=== PATIENT | female | born 1985 | race Caucasian/White ===

== ENCOUNTER 2018-06-17 19:41 | Inpatient (IN) ==
--- NOTE | 2018-06-17 20:21 | Emergency Department Note ---
Disposition Clinical Impression: Suicidal ideation Depression Qualifiers: Depression Type: major depressive disorder Major depression recurrence: recurrent Active/Remission status: currently active Major depression episode severity: moderate Qualified Code(s): F33.1 - Major depressive disorder, recurrent, moderate Disposition: Admitted As Inpatient Condition: Good Referrals: NONE,PCP [Primary Care Provider] - Forms: ED Satisfaction Letter Time of Disposition: 07:01 General Adult HPI - General Chief complaint: ED Psychiatric Symptoms Stated complaint: SI Time Seen by Provider: 06/17/18 19:50 Source: patient Mode of arrival: ambulatory Limitations: no limitations - History of Present Illness HPI Narrative: This is a 32-year-old female with a long history of major depressive disorder who comes to emergency department reporting increase in her suicidal ideas, thinking about another overdose attempt. She states that since the partial knee replacement of her right knee 10 weeks ago she has very poor sleep and has had a number of complications, all of which have aggravated her depression. Pain Scale: 7 - Related Data Home Medications Medication Instructions Recorded Confirmed Amitriptyline [Elavil] 50 mg PO HS 06/04/18 06/04/18 Buspirone HCl [Buspar] 20 mg PO BID 06/04/18 06/04/18 Butalbital/Aspirin/Caffeine 1 each PO BID PRN 06/04/18 06/04/18 [Fiorinal 50-325-40 mg Capsule] Celecoxib [Celebrex] 200 mg PO BID 06/04/18 06/04/18 Cetirizine HCl [Zyrtec] 10 mg PO DAILY 06/04/18 06/04/18 Cyclobenzaprine HCl 10 mg PO TID 06/04/18 06/04/18 Cyclobenzaprine [Flexeril] 10 mg PO TID 06/04/18 06/04/18 FLUoxetine HCl [Fluoxetine HCl] 80 mg PO DAILY 06/04/18 06/04/18 Fenofibrate,Micronized 43 mg PO DAILY 06/04/18 06/04/18 [Fenofibrate] Furosemide [Lasix] 20 mg PO DAILY 06/04/18 06/04/18 Gabapentin [Neurontin] 1,200 mg PO HS 06/04/18 06/04/18 HYDROcodone/Acet 10/325 mg [[place] 1 tab PO Q6HR PRN 06/04/18 06/04/18 10-325 mg] Magnesium Oxide [Mag-Oxide] 400 mg PO DAILY 06/04/18 06/04/18 Midodrine HCl 10 mg PO TID 06/04/18 06/04/18 Mirtazapine [Remeron] 45 mg PO HS 06/04/18 06/04/18 Nebivolol [Bystolic] 5 mg PO BID 06/04/18 06/04/18 Omeprazole [PriLOSEC] 40 mg PO DAILY 06/04/18 06/04/18 Potassium Chloride [Klor-Con 10] 10 meq PO DAILY 06/04/18 06/04/18 Prazosin HCl [Minipress] 10 mg PO HS 06/04/18 06/04/18 Promethazine [Phenergan] 25 mg PO Q8HR PRN 06/04/18 06/04/18 Sennosides/Docusate Sodium 1 each PO DAILY 06/04/18 06/04/18 [Docusate Sodium-Senna Tablet] Sucralfate [Carafate] 1 gm PO QIDAC 06/04/18 06/04/18 Topiramate [Topamax] 100 mg PO BID 06/04/18 06/04/18 diazePAM [Valium] 10 mg PO BID 06/04/18 06/04/18 Previous Rx's Medication Instructions Recorded Diclofenac Sodium [Voltaren] 50 mg PO Q8HR 5 Days tablet. 03/05/18 Montelukast [Singulair] 10 mg PO DAILY #30 tablet 04/21/18 Ondansetron ODT [Zofran ODT] 4 mg SL Q6HR PRN #12 tab.rapdis 04/24/18 Clindamycin [Cleocin] 150 mg PO Q6HR #7 capsule 06/04/18 HYDROcodone/Acet 5/325 mg [[place] 1 tab PO Q6H PRN 5 Days #20 tab 06/04/18 5-325 mg] Cyclobenzaprine [Flexeril] 10 mg PO BID #10 tablet 06/05/18 Ketorolac [Toradol] 10 mg PO Q6HR PRN #20 tablet 06/05/18 Oxycodone HCl/Acetaminophen 1 each PO 1-2XD PRN 1 Days #5 06/05/18 [Percocet 10-325 mg Tablet] tablet Allergies Allergy/AdvReac Type Severity Reaction Status Date / Time Bee Pollen Allergy Anaphylaxis Verified 06/03/18 10:02 benztropine [From Cogentin] Allergy Rash Verified 06/03/18 10:08 carbamazepine [From Tegretol] Allergy Rash Verified 06/03/18 10:05 ciprofloxacin [From Cipro] Allergy Rash Verified 06/03/18 10:08 duloxetine [From Cymbalta] Allergy Rash Verified 06/03/18 10:02 fluconazole [From Diflucan] Allergy Rash Verified 06/03/18 10:04 Fludrocortisone Allergy Hives Verified 06/03/18 10:08 [From Florinef] latex Allergy Rash - Verified 06/03/18 10:08 tested 06/03/18 levofloxacin [From Levaquin] Allergy Rash Verified 06/03/18 10:05 lurasidone [From Latuda] Allergy Hives Verified 04/27/18 23:02 Penicillins Allergy Rash Verified 06/03/18 10:02 quetiapine [From Seroquel] Allergy Seizure Verified 06/03/18 10:08 Temazepam [From Restoril] Allergy Rash Verified 06/03/18 10:08 ziprasidone [From Geodon] Allergy Hives Verified 06/03/18 10:04 ibuprofen [From Advil] AdvReac Vomiting Verified 04/27/18 23:02 methocarbamol [From Robaxin] AdvReac Vomiting Verified 04/27/18 23:02 naproxen [From Aleve] AdvReac Vomiting Verified 04/27/18 23:02 All systems ED: reviewed and negative except as stated. 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 - Social History Smoking Status: Never smoker Smokeless Tobacco Status: No Alcohol use: Reports: occasionally Drug use: Reports: none Physical Exam - General Limitations: no limitations General appearance: alert, in no apparent distress - Head Head exam: atraumatic, normocephalic, normal inspection - Eye Eye exam: Present: normal appearance, PERRL, EOMI - Chest Chest inspection: Present: normal inspection, symmetric chest wall rise - Respiratory Respiratory exam: Present: normal lung sounds bilaterally - Cardiovascular Cardiovascular exam: Present: regular rate, normal rhythm, normal heart sounds - Abdominal Exam Abdominal exam: Present: soft, Non-Tender. Absent: tenderness, distention, guarding, rebound, rigidity - Extremities Exam Extremities exam: Present: other (Extremity exam is unremarkable except for the right knee which has a dressing covering the incision from her surgery) - Neurological Exam Neurological exam: Present: alert, oriented X3 - Psychiatric Psychiatric exam: Present: depressed, suicidal ideation (She reports thoughts of taking an overdose of her medicines). Absent: homicidal ideation - Skin Skin exam: Present: warm, dry, intact, normal color Course Course Narrative: This is a 32-year-old female with suicidal ideation and depression. Vital Signs Temperature 99 F 06/17/18 19:47 Pulse Rate 112 06/17/18 19:47 Respiratory Rate 20 06/17/18 19:47 Blood Pressure 151/85 06/17/18 19:47 O2 Sat by Pulse Oximetry 96 06/17/18 19:47 Temperature 98.9 F 06/18/18 00:55 Pulse Rate 96 06/18/18 03:35 Respiratory Rate 18 06/18/18 03:35 Blood Pressure 123/83 06/18/18 03:35 O2 Sat by Pulse Oximetry 99 06/18/18 03:35 Oxygen Delivery Oxygen Delivery Room Air Medical Decision Making - MDM Narrative Medical decision making narrative: This is a 32-year-old female with history of depression and suicidal ideation. She was seen by psychiatry and accepted for admission, but transfer to an inpatient bed was delayed because of her history of MRSA skin infections, requiring a private room. - Lab Data Lab results reviewed: Yes I reviewed the patient's lab results. Lab results narrative: CBC was unremarkable BMP was unremarkable UA showed moderate bacteria with 5-15 white cells and 5-15 red cells HEG was negative Drug screen is positive for opiates, barbiturates, and benzodiazepines Salicylates were negative Tylenol was negative Alcohol was negative Result diagrams: 06/17/18 20:29 06/17/18 20:29 Lab Results 06/17/18 06/17/18 06/17/18 Range/Units 20:20 20:20 20:20 WBC (4.3-11.1) K/mcL RBC (3.82-4.97) M/mcL Hgb (11.5-15.4) g/dL Hct (35.3-44.9) % MCV (83.0-100.0) fL MCH (28.0-33.3) pg MCHC (31.6-35.5) g/dL RDW (11.5-14.5) % Plt Count (140-400) K/mcL MPV (9.4-12.4) fL Immature Gran % (0-4) % Seg Neutrophils % % Lymphocytes % % Monocytes % % Eosinophils % % Basophils % % Neutrophils # (1.6-8.9) K/mcL Lymphocytes # (0.6-4.6) K/mcL Monocytes # (0.0-1.3) K/mcL Eosinophils # (0.0-0.6) K/mcL Basophils # (0.0-0.2) K/mcL Sodium (136-145) mEq/L Potassium (3.5-5.1) mEq/L Chloride (98-107) mEq/L Carbon Dioxide (23-29) mEq/L BUN (6-20) mg/dL Creatinine (0.60-1.20) mg/dL Est GFR ( Amer) (> 60) Est GFR (Non-Af Amer) (> 60) BUN/Creatinine Ratio (6-26) Glucose (70-105) mg/dL Calculated Osmolality (280-300) Calcium (8.6-10.3) mg/dL Urine Color Yellow (Yellow) Urine Clarity Turbid A (Clear) Urine pH 7.5 (5.0-8.0) pH Units Ur Specific [place] 1.009 L (1.010-1.025) Urine Protein Negative (Neg-Trace) mg/dL Urine Glucose (UA) Normal (Normal) mg/dL Urine Ketones Negative (Negative) mg/dL Urine Blood Negative (Negative) Urine Nitrite Negative (Negative) Urine Bilirubin Negative (Negative) Urine Urobilinogen Normal (Normal) mg/dL Ur Leukocyte Esterase Negative (Negative) Urine Microscopic RBC 5-15 H (0-3) per hpf Urine Microscopic WBC 5-15 H (0-3) per hpf Ur Squamous Epith Cells Many H (None-Few) per lpf Urine Bacteria Moderate H (None-Few) per hpf Hyaline Casts None Seen (None-Few) per lpf Urine Test Negative (Negative) Salicylates (15.0-30.0) mg/dL Urine Opiates Screen Positive H (Loaqxf=833) ng/mL Acetaminophen (10-20) mcg/mL Ur Barbiturates Screen Positive H (Tvjjny=653) ng/mL Ur Phencyclidine Scrn Negative (Cutoff=25) ng/mL Ur Amphetamines Screen Negative (Hoonvb=0276) ng/mL U Benzodiazepines Scrn Positive H (Xusppm=828) ng/mL Urine Cocaine Screen Negative (Cutoff= 300) ng/mL U Marijuana (THC) Screen Negative (Cutoff = 50) ng/mL Ur Drug Screen Interp See Below Ethyl Alcohol (Less than 10) mg/dL 06/17/18 06/17/18 Range/Units 20:29 20:29 WBC 10.3 (4.3-11.1) K/mcL RBC 4.08 (3.82-4.97) M/mcL Hgb 12.5 (11.5-15.4) g/dL Hct 38.1 (35.3-44.9) % MCV 93.4 (83.0-100.0) fL MCH 30.6 (28.0-33.3) pg MCHC 32.8 (31.6-35.5) g/dL RDW 13.2 (11.5-14.5) % Plt Count 275 (140-400) K/mcL MPV 9.9 (9.4-12.4) fL Immature Gran % 0.7 (0-4) % Seg Neutrophils % 69.6 % Lymphocytes % 20.7 % Monocytes % 6.9 % Eosinophils % 1.5 % Basophils % 0.6 % Neutrophils # 7.2 (1.6-8.9) K/mcL Lymphocytes # 2.1 (0.6-4.6) K/mcL Monocytes # 0.7 (0.0-1.3) K/mcL Eosinophils # 0.2 (0.0-0.6) K/mcL Basophils # 0.1 (0.0-0.2) K/mcL Sodium 141 (136-145) mEq/L Potassium 4.0 (3.5-5.1) mEq/L Chloride 110 H (98-107) mEq/L Carbon Dioxide 23 (23-29) mEq/L BUN 16 (6-20) mg/dL Creatinine 0.77 (0.60-1.20) mg/dL Est GFR ( Amer) > 60 (> 60) Est GFR (Non-Af Amer) > 60 (> 60) BUN/Creatinine Ratio 21 (6-26) Glucose 111 H (70-105) mg/dL Calculated Osmolality 294 (280-300) Calcium 9.3 (8.6-10.3) mg/dL Urine Color (Yellow) Urine Clarity (Clear) Urine pH (5.0-8.0) pH Units Ur Specific [place] (1.010-1.025) Urine Protein (Neg-Trace) mg/dL Urine Glucose (UA) (Normal) mg/dL Urine Ketones (Negative) mg/dL Urine Blood (Negative) Urine Nitrite (Negative) Urine Bilirubin (Negative) Urine Urobilinogen (Normal) mg/dL Ur Leukocyte Esterase (Negative) Urine Microscopic RBC (0-3) per hpf Urine Microscopic WBC (0-3) per hpf Ur Squamous Epith Cells (None-Few) per lpf Urine Bacteria (None-Few) per hpf Hyaline Casts (None-Few) per lpf Urine Test (Negative) Salicylates < 2.5 L (15.0-30.0) mg/dL Urine Opiates Screen (Ilzmnj=711) ng/mL Acetaminophen < 10 L (10-20) mcg/mL Ur Barbiturates Screen (Deoogd=994) ng/mL Ur Phencyclidine Scrn (Cutoff=25) ng/mL Ur Amphetamines Screen (Dnkrpm=2748) ng/mL U Benzodiazepines Scrn (Hlabhh=364) ng/mL Urine Cocaine Screen (Cutoff= 300) ng/mL U Marijuana (THC) Screen (Cutoff = 50) ng/mL Ur Drug Screen Interp Ethyl Alcohol < 10 (Less than 10) mg/dL Critical Care Time Critical Care Time: No
[2018-06-17 20:36] LABS: Bilirubin,Urine Negative (Negative); Blood,Urine Negative (Negative); Clarity,Urine Turbid (Clear); Color,Urine Yellow (Yellow); Glucose,Urine (UA) Normal (Normal); Ketones,Urine Negative (Negative); Leukocyte Esterase,Urine Negative (Negative); Nitrite,Urine Negative (Negative); PH,Urine 7.5 pH Units (5.0-8.0); Protein,Urine Negative (Neg-Trace); Specific Gravity,Urine 1.009 (1.010-1.025); Urobilinogen,Urine Normal (Normal)
[2018-06-17 20:38] LABS: Bacteria,Urine Moderate per hpf (None-Few); Hyaline Casts,Urine None Seen per lpf (None-Few); Squamous Epithelial Cell,Urine Many per lpf (None-Few)
[2018-06-17 20:41] LABS: Basophils # 0.1 K/mcL (0.0-0.2); Basophils % 0.6 %; Eosinophils # 0.2 K/mcL (0.0-0.6); Eosinophils % 1.5 %; Hematocrit 38.1 % (35.3-44.9); Hemoglobin 12.5 g/dL (11.5-15.4); Immature Granulocytes % 0.7 % (0-4); Lymphocytes # 2.1 K/mcL (0.6-4.6); Lymphocytes % 20.7 %; Mean Corpuscular HGB Conc 32.8 g/dL (31.6-35.5); Mean Corpuscular Hemoglobin 30.6 pg (28.0-33.3); Mean Corpuscular Volume 93.4 fL (83.0-100.0); Mean Platelet Volume 9.9 fL (9.4-12.4); Monocytes # 0.7 K/mcL (0.0-1.3); Monocytes % 6.9 %; Neutrophils # 7.2 K/mcL (1.6-8.9); Platelet Count 275 K/mcL (140-400); Red Blood Count 4.08 M/mcL (3.82-4.97); Red Cell Distribution Width 13.2 % (11.5-14.5); Segmented Neutrophils % 69.6 %
[2018-06-17 20:47] LABS: Amphetamine Screen,Urine Negative ng/mL (Cutoff=1000); Barbiturate Screen,Urine Positive ng/mL (Cutoff=200); Benzodiazepines Screen,Urine Positive ng/mL (Cutoff=200); Cannabinoid Screen,Urine Negative ng/mL (Cutoff = 50); Cocaine Screen,Urine Negative ng/mL (Cutoff= 300); Opiate Screen,Urine Positive ng/mL (Cutoff=300); Phencyclidine Screen,Urine Negative ng/mL (Cutoff=25)
[2018-06-17 21:04] LABS: Acetaminophen < 10 mcg/mL (10-20); BUN/Creatinine Ratio 21 (6-26); Blood Urea Nitrogen 16 mg/dL (6-20); Calcium 9.3 mg/dL (8.6-10.3); Carbon Dioxide 23 mEq/L (23-29); Chloride 110 mEq/L (98-107); Ethanol < 10 mg/dL (Less than 10); Glucose 111 mg/dL (70-105); Osmolality,Calculated 294 (280-300); Salicylate < 2.5 mg/dL (15.0-30.0); Sodium 141 mEq/L (136-145); eGFR For Non-African Americans > 60 (> 60)
[2018-06-17] MEDS ORDERED: *HR* OxyCODONE/APAP 5/325 TABLET PO ONE (21:29)
[2018-06-18] MEDS ORDERED: *HR* HYDROcodone/Acet 5/325 mg TABLET PO ONE (02:46)
[2018-06-18] MEDS ORDERED: amLODIPine 5 MG TABLET PO ONE (03:19)
--- NOTE | 2018-06-18 08:21 | Emergency Department Note ---
Disposition Clinical Impression: Suicidal ideation Depression Qualifiers: Depression Type: major depressive disorder Major depression recurrence: recurrent Active/Remission status: currently active Major depression episode severity: moderate Qualified Code(s): F33.1 - Major depressive disorder, recurrent, moderate Disposition: Admitted As Inpatient Condition: Good Referrals: NONE,PCP [Primary Care Provider] - Forms: ED Satisfaction Letter General Adult HPI - General Chief complaint: ED Psychiatric Symptoms Stated complaint: SI Time Seen by Provider: 06/17/18 19:50 Source: patient Mode of arrival: ambulatory Limitations: no limitations - History of Present Illness Pain Scale: 7 - Related Data Home Medications Medication Instructions Recorded Confirmed Buspirone HCl [Buspar] 20 mg PO BID 06/04/18 06/18/18 Butalbital/Aspirin/Caffeine 1 each PO BID PRN 06/04/18 06/18/18 [Fiorinal 50-325-40 mg Capsule] Celecoxib [Celebrex] 200 mg PO DAILY 06/04/18 06/18/18 Cetirizine HCl [Zyrtec] 10 mg PO DAILY 06/04/18 06/18/18 FLUoxetine HCl [Fluoxetine HCl] 80 mg PO DAILY 06/04/18 06/18/18 Furosemide [Lasix] 20 mg PO DAILY 06/04/18 06/18/18 Gabapentin [Neurontin] 1,200 mg PO HS 06/04/18 06/18/18 Magnesium Oxide [Mag-Oxide] 400 mg PO DAILY 06/04/18 06/18/18 Midodrine HCl 10 mg PO TID 06/04/18 06/18/18 Mirtazapine [Remeron] 45 mg PO HS 06/04/18 06/18/18 Nebivolol [Bystolic] 5 mg PO BID 06/04/18 06/18/18 Omeprazole [PriLOSEC] 40 mg PO DAILY 06/04/18 06/18/18 Potassium Chloride [Klor-Con 10] 10 meq PO DAILY 06/04/18 06/18/18 Prazosin HCl [Minipress] 10 mg PO HS 06/04/18 06/18/18 Promethazine [Phenergan] 25 mg PO Q8HR PRN 06/04/18 06/18/18 Sennosides/Docusate Sodium 1 each PO DAILY 06/04/18 06/18/18 [Docusate Sodium-Senna Tablet] Sucralfate [Carafate] 1 gm PO QIDAC 06/04/18 06/18/18 Amitriptyline HCl 100 mg PO HS 06/18/18 06/18/18 Cyclobenzaprine HCl 5 mg PO TID PRN 06/18/18 06/18/18 Fenofibrate Nanocrystallized 48 mg PO DAILY 06/18/18 06/18/18 [[place]] HYDROcodone/Acet 5/325 mg [[place] 1 tab PO Q12H PRN 06/18/18 06/18/18 5-325 mg] Ondansetron [Zofran ODT] 8 mg SL BID PRN 06/18/18 06/18/18 Topiramate [Topamax] 50 mg PO BID 06/18/18 06/18/18 Previous Rx's Medication Instructions Recorded Diclofenac Sodium [Voltaren] 50 mg PO Q8HR 5 Days tablet. 03/05/18 Montelukast [Singulair] 10 mg PO DAILY #30 tablet 04/21/18 Allergies Allergy/AdvReac Type Severity Reaction Status Date / Time Bee Pollen Allergy Anaphylaxis Verified 06/03/18 10:02 benztropine [From Cogentin] Allergy Rash Verified 06/18/18 08:15 carbamazepine [From Tegretol] Allergy Rash Verified 06/18/18 08:15 ciprofloxacin [From Cipro] Allergy Rash Verified 06/18/18 08:15 duloxetine [From Cymbalta] Allergy Rash Verified 06/18/18 08:15 fluconazole [From Diflucan] Allergy Rash Verified 06/18/18 08:15 Fludrocortisone Allergy Hives Verified 06/18/18 08:15 [From Florinef] latex Allergy Rash - Verified 06/18/18 08:15 tested 06/03/18 levofloxacin [From Levaquin] Allergy Rash Verified 06/18/18 08:15 lurasidone [From Latuda] Allergy Hives Verified 06/18/18 08:15 Penicillins Allergy Rash Verified 06/18/18 08:15 quetiapine [From Seroquel] Allergy Seizure Verified 06/18/18 08:15 Temazepam [From Restoril] Allergy Rash Verified 06/18/18 08:15 ziprasidone [From Geodon] Allergy Hives Verified 06/18/18 08:15 ibuprofen [From Advil] AdvReac Vomiting Verified 06/18/18 08:15 methocarbamol [From Robaxin] AdvReac Vomiting Verified 06/18/18 08:15 naproxen [From Aleve] AdvReac Vomiting Verified 06/18/18 08:15 Psychiatric: Reports: depression, suicidal thoughts Past Medical History - Past Medical History Medical history: Reports: asthma, DVT, kidney stones, migraine, pulmonary embolus Psychiatric history: Reports: anxiety, depression, PTSD 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 - Social History Smoking Status: Never smoker Smokeless Tobacco Status: No Alcohol use: Reports: occasionally Drug use: Reports: none Physical Exam - General Limitations: no limitations General appearance: alert, in no apparent distress Course Vital Signs Temperature 99 F 06/17/18 19:47 Pulse Rate 112 06/17/18 19:47 Respiratory Rate 20 06/17/18 19:47 Blood Pressure 151/85 06/17/18 19:47 O2 Sat by Pulse Oximetry 96 06/17/18 19:47 Temperature 98.9 F 06/18/18 00:55 Pulse Rate 96 06/18/18 03:35 Respiratory Rate 18 06/18/18 03:35 Blood Pressure 123/83 06/18/18 03:35 O2 Sat by Pulse Oximetry 99 06/18/18 03:35 Oxygen Delivery Oxygen Delivery Room Air Medical Decision Making - Lab Data Result diagrams: 06/17/18 20:29 06/17/18 20:29 Lab Results 06/17/18 06/17/18 06/17/18 Range/Units 20:20 20:20 20:20 WBC (4.3-11.1) K/mcL RBC (3.82-4.97) M/mcL Hgb (11.5-15.4) g/dL Hct (35.3-44.9) % MCV (83.0-100.0) fL MCH (28.0-33.3) pg MCHC (31.6-35.5) g/dL RDW (11.5-14.5) % Plt Count (140-400) K/mcL MPV (9.4-12.4) fL Immature Gran % (0-4) % Seg Neutrophils % % Lymphocytes % % Monocytes % % Eosinophils % % Basophils % % Neutrophils # (1.6-8.9) K/mcL Lymphocytes # (0.6-4.6) K/mcL Monocytes # (0.0-1.3) K/mcL Eosinophils # (0.0-0.6) K/mcL Basophils # (0.0-0.2) K/mcL Sodium (136-145) mEq/L Potassium (3.5-5.1) mEq/L Chloride (98-107) mEq/L Carbon Dioxide (23-29) mEq/L BUN (6-20) mg/dL Creatinine (0.60-1.20) mg/dL Est GFR ( Amer) (> 60) Est GFR (Non-Af Amer) (> 60) BUN/Creatinine Ratio (6-26) Glucose (70-105) mg/dL Calculated Osmolality (280-300) Calcium (8.6-10.3) mg/dL Urine Color Yellow (Yellow) Urine Clarity Turbid A (Clear) Urine pH 7.5 (5.0-8.0) pH Units Ur Specific [place] 1.009 L (1.010-1.025) Urine Protein Negative (Neg-Trace) mg/dL Urine Glucose (UA) Normal (Normal) mg/dL Urine Ketones Negative (Negative) mg/dL Urine Blood Negative (Negative) Urine Nitrite Negative (Negative) Urine Bilirubin Negative (Negative) Urine Urobilinogen Normal (Normal) mg/dL Ur Leukocyte Esterase Negative (Negative) Urine Microscopic RBC 5-15 H (0-3) per hpf Urine Microscopic WBC 5-15 H (0-3) per hpf Ur Squamous Epith Cells Many H (None-Few) per lpf Urine Bacteria Moderate H (None-Few) per hpf Hyaline Casts None Seen (None-Few) per lpf Urine Test Negative (Negative) Salicylates (15.0-30.0) mg/dL Urine Opiates Screen Positive H (Vppnwr=425) ng/mL Acetaminophen (10-20) mcg/mL Ur Barbiturates Screen Positive H (Lzugwz=873) ng/mL Ur Phencyclidine Scrn Negative (Cutoff=25) ng/mL Ur Amphetamines Screen Negative (Klsopr=9628) ng/mL U Benzodiazepines Scrn Positive H (Rmbboj=814) ng/mL Urine Cocaine Screen Negative (Cutoff= 300) ng/mL U Marijuana (THC) Screen Negative (Cutoff = 50) ng/mL Ur Drug Screen Interp See Below Ethyl Alcohol (Less than 10) mg/dL 06/17/18 06/17/18 Range/Units 20:29 20:29 WBC 10.3 (4.3-11.1) K/mcL RBC 4.08 (3.82-4.97) M/mcL Hgb 12.5 (11.5-15.4) g/dL Hct 38.1 (35.3-44.9) % MCV 93.4 (83.0-100.0) fL MCH 30.6 (28.0-33.3) pg MCHC 32.8 (31.6-35.5) g/dL RDW 13.2 (11.5-14.5) % Plt Count 275 (140-400) K/mcL MPV 9.9 (9.4-12.4) fL Immature Gran % 0.7 (0-4) % Seg Neutrophils % 69.6 % Lymphocytes % 20.7 % Monocytes % 6.9 % Eosinophils % 1.5 % Basophils % 0.6 % Neutrophils # 7.2 (1.6-8.9) K/mcL Lymphocytes # 2.1 (0.6-4.6) K/mcL Monocytes # 0.7 (0.0-1.3) K/mcL Eosinophils # 0.2 (0.0-0.6) K/mcL Basophils # 0.1 (0.0-0.2) K/mcL Sodium 141 (136-145) mEq/L Potassium 4.0 (3.5-5.1) mEq/L Chloride 110 H (98-107) mEq/L Carbon Dioxide 23 (23-29) mEq/L BUN 16 (6-20) mg/dL Creatinine 0.77 (0.60-1.20) mg/dL Est GFR ( Amer) > 60 (> 60) Est GFR (Non-Af Amer) > 60 (> 60) BUN/Creatinine Ratio 21 (6-26) Glucose 111 H (70-105) mg/dL Calculated Osmolality 294 (280-300) Calcium 9.3 (8.6-10.3) mg/dL Urine Color (Yellow) Urine Clarity (Clear) Urine pH (5.0-8.0) pH Units Ur Specific [place] (1.010-1.025) Urine Protein (Neg-Trace) mg/dL Urine Glucose (UA) (Normal) mg/dL Urine Ketones (Negative) mg/dL Urine Blood (Negative) Urine Nitrite (Negative) Urine Bilirubin (Negative) Urine Urobilinogen (Normal) mg/dL Ur Leukocyte Esterase (Negative) Urine Microscopic RBC (0-3) per hpf Urine Microscopic WBC (0-3) per hpf Ur Squamous Epith Cells (None-Few) per lpf Urine Bacteria (None-Few) per hpf Hyaline Casts (None-Few) per lpf Urine Test (Negative) Salicylates < 2.5 L (15.0-30.0) mg/dL Urine Opiates Screen (Otznry=316) ng/mL Acetaminophen < 10 L (10-20) mcg/mL Ur Barbiturates Screen (Xmexoc=601) ng/mL Ur Phencyclidine Scrn (Cutoff=25) ng/mL Ur Amphetamines Screen (Akuqtz=7101) ng/mL U Benzodiazepines Scrn (Qrqkic=394) ng/mL Urine Cocaine Screen (Cutoff= 300) ng/mL U Marijuana (THC) Screen (Cutoff = 50) ng/mL Ur Drug Screen Interp Ethyl Alcohol < 10 (Less than 10) mg/dL Attestation Statement - Attestation Attestation: Care assumed from Dr. green at 7 AM pending presumed admission to the behavioral unit. I received notification from 1A at 08:15 that the psychiatrist recommended admission to the medicine service due to drainage from her right knee. The knee had not previously been examined by the psychiatry team. I did remove the brace and bandage. The wound approximation device still in place. There is no surrounding cellulitis or erythema. There is no purulent drainage. The patient does have some serous drainage. She otherwise appears sleepy but no acute distress. I have provided my findings to psychiatry and gave my impression that she could be admitted to the psychiatric unit with orthopedic consultation if necessary, however she does not meet clinical criteria for cellulitis or postop wound infection
[2018-06-18] MEDS ORDERED: *HR* HYDROcodone/Acet 10/325 mg TABLET PO ONE (12:47)
[2018-06-18] MEDS ORDERED: Acetaminophen/Butalbital/CaffeineTABLET PO PRN (16:32)
[2018-06-18] MEDS ORDERED: MOM Conc 10 ML UD.LIQ PO PRN (16:39)
[2018-06-18] MEDS ORDERED: *HR* LORazepam 1 MG TABLET PO PRN (16:39)
[2018-06-18] MEDS ORDERED: Mag Hydrox/Al Hydrox/Simeth 30 ML UDC PO PRN (16:39)
[2018-06-18] MEDS ORDERED: Haloperidol Lactate 5 MG/ML VIAL IM PRN (16:39)
[2018-06-18] MEDS ORDERED: *HR* LORazepam 2 MG/ML VIAL IM PRN (16:39)
[2018-06-18] MEDS: *HR* HYDROcodone/Acet 5/325 mg TABLET PO PRN (19:21)
[2018-06-18] MEDS ORDERED: PRAZOSIN HCL 10 MG PO SCH (21:00)
[2018-06-18] MEDS: Gabapentin 400 MG CAPSULE PO SCH (21:07)
[2018-06-18] MEDS: Topiramate 25 MG TABLET PO SCH (21:09)
[2018-06-18] MEDS: Mirtazapine 15 MG TABLET PO SCH (21:09)
[2018-06-18] MEDS: Ondansetron ODT 4 MG TAB.RAPDIS SL PRN (22:10)
[2018-06-18] MEDS: Acetaminophen 325 MG TABLET PO PRN (22:10)
[2018-06-19] MEDS: Sucralfate 1 GM TABLET PO SCH ×5 (03:12→20:58)
[2018-06-19] MEDS: Acetaminophen 325 MG TABLET PO PRN ×3 (04:10→21:53)
[2018-06-19] MEDS: Topiramate 25 MG TABLET PO SCH (10:01)
[2018-06-19] MEDS: FLUoxetine 20 MG CAPSULE PO SCH (10:02)
[2018-06-19] MEDS: Fenofibrate 54 MG TABLET PO SCH (10:02)
[2018-06-19] MEDS: Magnesium Oxide 400 MG TABLET PO SCH (10:02)
[2018-06-19] MEDS: Celecoxib 200 MG CAPSULE PO SCH (10:02)
[2018-06-19] MEDS: Loratadine 10 MG TABLET PO SCH (10:02)
[2018-06-19] MEDS: Sennosides/Docusate Sodium TABLET PO SCH (10:02)
[2018-06-19] MEDS: Furosemide 20 MG TABLET PO SCH (11:25)
--- NOTE | 2018-06-19 13:16 | Psychiatry History & Physical ---
Date of Encounter: 06/19/18 Time of Encounter: 13:10 History of Present Illness Medicare Admission Attestation: For traditional Medicare patients the provided hospital inpatient services are reasonable and necessary and in the case of services not specified as inpatient -only under 42 CFR 419.22 (n), that they are appropriately provided as inpatient services in accordance 42 CFR 412.3. For Critical Access Hospital the patient may reasonably be expected to be discharged or transferred to a hospital within 96 hours after admission to the Critical Access Hospital. Admitted From: Home Plans for Post Hospital Care: Home History of Present Illness: Ms. Rodriguez is a 32 year old female who was admitted secondary to SI. Recently had two knee surgeries and dealing with chronic pain. Not sleeping well. Thinks SI secondary to poor sleep. Already takes multiple psych meds. Hospitalized many times in past. No AOD issues. Discussed plan of action for this hospitalization. Client reports if she gets some decent sleep she thinks she will feel better. Failed or had side effects to Ambien, Melatonin, Trazodone, and Restoril. Already takes Remeron and Elavil. States Seroquel gave her seizures in the past but willing to try it again. Doesn't know what her previous dose was. Seizures may have been psychogenic as well. Already at a high dose of Neurontin. Will increase Topamax and start with a low dose of Seroquel so she should be protected from any epileptic activity. Knee looks good. Already weight bearing as tolerated. Past Med Surg Social Fam HX - Past Medical History Medical history: asthma, DVT, GERD, kidney stones, migraine, pulmonary embolus - Past Psychiatric History Psychiatric history: Reports: previous psychiatric hospitalization Family psychiatric history: Unknown Family History of Suicide: Unknown - Social History Smoking Status: Never smoker Smokeless Tobacco Status: No Alcohol use: occasionally Drug use: none Medications & Allergies Diclofenac Sodium [Voltaren] 50 mg PO Q8HR 5 Days tablet. 03/05/18 [Rx] Montelukast [Singulair] 10 mg PO DAILY #30 tablet 04/21/18 [Rx] Buspirone HCl [Buspar] 20 mg PO BID 06/04/18 [History] Butalbital/Aspirin/Caffeine [Fiorinal 50-325-40 mg Capsule] 1 each PO BID PRN [History] Celecoxib [Celebrex] 200 mg PO DAILY 06/04/18 [History] Cetirizine HCl [Zyrtec] 10 mg PO DAILY 06/04/18 [History] FLUoxetine HCl [Fluoxetine HCl] 80 mg PO DAILY 06/04/18 [History] Furosemide [Lasix] 20 mg PO DAILY 06/04/18 [History] Gabapentin [Neurontin] 1,200 mg PO HS 06/04/18 [History] Magnesium Oxide [Mag-Oxide] 400 mg PO DAILY 06/04/18 [History] Midodrine HCl 10 mg PO TID 06/04/18 [History] Mirtazapine [Remeron] 45 mg PO HS 06/04/18 [History] Nebivolol [Bystolic] 5 mg PO BID 06/04/18 [History] Omeprazole [PriLOSEC] 40 mg PO DAILY 06/04/18 [History] Potassium Chloride [Klor-Con 10] 10 meq PO DAILY 06/04/18 [History] Prazosin HCl [Minipress] 10 mg PO HS 06/04/18 [History] Promethazine [Phenergan] 25 mg PO Q8HR PRN 06/04/18 [History] Sennosides/Docusate Sodium [Docusate Sodium-Senna Tablet] 1 each PO DAILY [History] Sucralfate [Carafate] 1 gm PO QIDAC 06/04/18 [History] Amitriptyline HCl 100 mg PO HS 06/18/18 [History] Cyclobenzaprine HCl 5 mg PO TID PRN 06/18/18 [History] Fenofibrate Nanocrystallized [Tricor] 48 mg PO DAILY 06/18/18 [History] HYDROcodone/Acet 5/325 mg [[place] 5-325 mg] 1 tab PO Q12H PRN 06/18/18 [History] Ondansetron [Zofran ODT] 8 mg SL BID PRN 06/18/18 [History] Topiramate [Topamax] 50 mg PO BID 06/18/18 [History] 3 Allergy/AdvReac Type Severity Reaction Status Date / Time Bee Pollen Allergy Anaphylaxis Verified 06/03/18 10:02 benztropine [From Cogentin] Allergy Rash Verified 06/18/18 08:15 carbamazepine [From Tegretol] Allergy Rash Verified 06/18/18 08:15 ciprofloxacin [From Cipro] Allergy Rash Verified 06/18/18 08:15 duloxetine [From Cymbalta] Allergy Rash Verified 06/18/18 08:15 fluconazole [From Diflucan] Allergy Rash Verified 06/18/18 08:15 Fludrocortisone Allergy Hives Verified 06/18/18 08:15 [From Florinef] latex Allergy Rash - Verified 06/18/18 08:15 tested 06/03/18 levofloxacin [From Levaquin] Allergy Rash Verified 06/18/18 08:15 lurasidone [From Latuda] Allergy Hives Verified 06/18/18 08:15 Penicillins Allergy Rash Verified 06/18/18 08:15 quetiapine [From Seroquel] Allergy Seizure Verified 06/18/18 08:15 Temazepam [From Restoril] Allergy Rash Verified 06/18/18 08:15 ziprasidone [From Geodon] Allergy Hives Verified 06/18/18 08:15 ibuprofen [From Advil] AdvReac Vomiting Verified 06/18/18 08:15 methocarbamol [From Robaxin] AdvReac Vomiting Verified 06/18/18 08:15 naproxen [From Aleve] AdvReac Vomiting Verified 06/18/18 08:15 Review of Systems Constitutional: Reports: other Eyes: Denies: eye pain, vision change Ears, Nose, Throat: Denies: ear pain, throat pain, dental pain, hearing loss, congestion Cardiovascular: Denies: chest pain, palpitations, dyspnea on exertion Respiratory: Denies: cough, dyspnea, wheezes Gastrointestinal: Denies: abdominal pain, nausea, vomiting, diarrhea, constipation Genitourinary female: Denies: urgency, dysuria, frequency, abnormal menses, dyspareunia Musculoskeletal: Reports: joint pain Integumentary: Denies: rash, lesions, pruritus Neurological: Denies: headache, weakness, numbness, memory loss Endocrine: Denies: fatigue, heat or cold intolerance Hematologic/Lymphatic: Denies: easy bruising, lymphadenopathy Allergic/Immunologic: Denies: urticaria, itchy eyes Exam - HEENT Head exam IM: Present: atraumatic Eye exam IM: Present: EOMI ENT exam IM: Present: mucous membranes dry - Neurological Neurological exam: Present: CN II-XII intact - Respiratory Respiratory exam IM: Present: CTAB - GI/Abdominal GI/Abdominal exam IM: Present: normal bowel sounds - Extremities Extremities exam IM: Present: tenderness - Skin Skin exam IM: Present: normal color - Constitutional Vitals: Temp Pulse Resp BP Pulse Ox 98.0 F 71 18 116/72 98 06/19/18 09:00 06/19/18 09:00 06/19/18 09:00 06/19/18 09:00 06/18/18 10:35 General appearance: age & developmentally appropriate, well-groomed, well- nourished - Musculoskeletal Gait: other Station: relaxed Strength & Tone: normal for patient - Psychiatric Patient Orientation: Yes Person, Yes Time, Yes Place Level of alertness: Alert Behavior: calm, cooperative Psychomotor activity: Normal Eye Contact: Maintains Eye Contact Mood Description: Depressed Affect description: congruent with mood Speech Volume: Normal Speech pattern: normal rate, normal rhythm, normal tone, fluent, spontaneous Language & Vocabulary: consistent with education Thought Process: Linear, Goal Oriented Thought Content: Yes Suicidal ideation, No Homicidal ideation, No Overt delusions Perceptual Disturbances: No Auditory hallucinations, No Visual hallucinations Attention Span Ability: Capable of Focused Attention Memory Description: Grossly Intact Patient Reliability: Reliable Historian Fund of knowledge: Yes abstraction ability, Yes average, Yes aware of current events Intelligence Estimate: Average Judgment: Fair Insight: Partial Results - Labs Labs: Laboratory Last Values WBC 10.3 K/mcL (4.3-11.1) 06/17/18 20:29 RBC 4.08 M/mcL (3.82-4.97) 06/17/18 20:29 Hgb 12.5 g/dL (11.5-15.4) 06/17/18 20:29 Hct 38.1 % (35.3-44.9) 06/17/18 20:29 MCV 93.4 fL (83.0-100.0) 06/17/18 20:29 MCH 30.6 pg (28.0-33.3) 06/17/18 20:29 MCHC 32.8 g/dL (31.6-35.5) 06/17/18 20:29 RDW 13.2 % (11.5-14.5) 06/17/18 20:29 Plt Count 275 K/mcL (140-400) 06/17/18 20:29 MPV 9.9 fL (9.4-12.4) 06/17/18 20: Immature Gran % 0.7 % (0-4) 06/17/18: Seg Neutrophils % 69.6 % 06/17/18 20: Lymphocytes % 20.7 % 06/17/18 20: Monocytes % 6.9 % 06/17/18: Eosinophils % 1.5 % 06/17/18: Basophils % 0.6 % 06/17/18: Neutrophils # 7.2 K/mcL (1.6-8.9) 06/17/18 20: Lymphocytes # 2.1 K/mcL (0.6-4.6) 06/17/18: Monocytes # 0.7 K/mcL (0.0-1.3) 06/17/18: Eosinophils # 0.2 K/mcL (0.0-0.6) 06/17/18: Basophils # 0.1 K/mcL (0.0-0.2) 06/17/18 20: Sodium 141 mEq/L (136-145) 06/17/18 20: Potassium 4.0 mEq/L (3.5-5.1) 06/17/18: Chloride 110 mEq/L (98-107) H 06/17/18: Carbon Dioxide 23 mEq/L (23-29) 06/17/18: BUN 16 mg/dL (6-20) 06/17/18: Creatinine 0.77 mg/dL (0.60-1.20) 06/17/18 20: Est GFR ( Amer) > 60 (> 60) 06/17/18 20: Est GFR (Non-Af Amer) > 60 (> 60) 06/17/18 20: BUN/Creatinine Ratio 21 (6-26) 06/17/18: Glucose 111 mg/dL (70-105) H 06/17/18: Calculated Osmolality 294 (280-300) 06/17/18: Calcium 9.3 mg/dL (8.6-10.3) 06/17/18 20: Urine Color Yellow (Yellow) 06/17/18 20: Urine Clarity Turbid (Clear) A 06/17/18 20:20 Urine pH 7.5 pH Units (5.0-8.0) 06/17/18 20:20 Ur Specific [place] 1.009 (1.010-1.025) L 06/17/18 20:20 Urine Protein Negative mg/dL (Neg-Trace) 06/17/18 20:20 Urine Glucose (UA) Normal mg/dL (Normal) 06/17/18 20:20 Urine Ketones Negative mg/dL (Negative) 06/17/18 20:20 Urine Blood Negative (Negative) 06/17/18 20:20 Urine Nitrite Negative (Negative) 06/17/18 20:20 Urine Bilirubin Negative (Negative) 06/17/18 20:20 Urine Urobilinogen Normal mg/dL (Normal) 06/17/18 20:20 Ur Leukocyte Esterase Negative (Negative) 06/17/18 20:20 Urine Microscopic RBC 5-15 per hpf (0-3) H 06/17/18 20:20 Urine Microscopic WBC 5-15 per hpf (0-3) H 06/17/18 20:20 Ur Squamous Epith Cells Many per lpf (None-Few) H 06/17/18 20:20 Urine Bacteria Moderate per hpf (None-Few) H 06/17/18 20:20 Hyaline Casts None Seen per lpf (None-Few) 06/17/18 20:20 Urine Test Negative (Negative) 06/17/18 20:20 Salicylates < 2.5 mg/dL (15.0-30.0) L 06/17/18 20:29 Urine Opiates Screen Positive ng/mL (Cqarho=999) H 06/17/18 20:20 Acetaminophen < 10 mcg/mL (10-20) L 06/17/18 20:29 Ur Barbiturates Screen Positive ng/mL (Hzyqpu=661) H 06/17/18 20:20 Ur Phencyclidine Scrn Negative ng/mL (Cutoff=25) 06/17/18 20:20 Ur Amphetamines Screen Negative ng/mL (Okbnry=0009) 06/17/18 20:20 U Benzodiazepines Scrn Positive ng/mL (Fhixxg=781) H 06/17/18 20:20 Urine Cocaine Screen Negative ng/mL (Cutoff= 300) 06/17/18 20:20 U Marijuana (THC) Screen Negative ng/mL (Cutoff = 50) 06/17/18 20:20 Ur Drug Screen Interp See Below 06/17/18 20:20 Ethyl Alcohol < 10 mg/dL (Less than 10) 06/17/18 20:29 Assessment and Plan (1) Major depress dis, severe Current visit: Yes Status: Acute Plan: Admit inpatient for safety and stabilization, Close observation, Suicide Precautions per unit protocol, Encourage participation in unit milieu, Group Therapy, Monitor sleep, Monitor appetite Risks, benefits, side effects, alternatives discussed w/pt: Yes Patient agreeable to treatment: Yes Plans for Post Hospital Care: Home Estimated Length of Stay (Days): 3
[2018-06-19] MEDS: *HR* HYDROcodone/Acet 5/325 mg TABLET PO PRN (19:52)
[2018-06-19] MEDS: Gabapentin 400 MG CAPSULE PO SCH (20:57)
[2018-06-19] MEDS: Mirtazapine 15 MG TABLET PO SCH (20:57)
[2018-06-19] MEDS: Topiramate 100 MG TABLET PO SCH (20:58)
[2018-06-20] MEDS: Topiramate 100 MG TABLET PO SCH (09:32)
[2018-06-20] MEDS: Fenofibrate 54 MG TABLET PO SCH (09:32)
[2018-06-20] MEDS: Furosemide 20 MG TABLET PO SCH (09:32)
[2018-06-20] MEDS: Sennosides/Docusate Sodium TABLET PO SCH (09:32)
[2018-06-20] MEDS: Magnesium Oxide 400 MG TABLET PO SCH (09:32)
[2018-06-20] MEDS: Loratadine 10 MG TABLET PO SCH (09:32)
[2018-06-20] MEDS: Celecoxib 200 MG CAPSULE PO SCH (09:32)
[2018-06-20] MEDS: FLUoxetine 20 MG CAPSULE PO SCH (09:32)
[2018-06-20] MEDS: Sucralfate 1 GM TABLET PO SCH ×4 (09:39→20:50)
--- NOTE | 2018-06-20 10:10 | Psychiatry Progress Note ---
Date of Encounter: 06/20/18 Time of Encounter: 10:07 Subjective Interval history: Continues to endorse SI but does not appear outwardly depressed. Continues to endorse knee pain but she also messes with her knee constantly. Tends to pull off the steri strips and then wants new ones. Asking for a wedge pillow and ice today. Pleasant but demanding at the same time. Manipulative and staff splitting. Very Cluster B presentation. Seems to like being in the hospital. Suspect she can be discharged early this week. Review of Systems Constitutional: Denies: fever, chills, weakness, weight change Eyes: Denies: eye pain, vision change Ears, Nose, Throat: Denies: ear pain, throat pain, dental pain, hearing loss, congestion Cardiovascular: Denies: chest pain, palpitations, dyspnea on exertion Respiratory: Denies: cough, dyspnea, wheezes Gastrointestinal: Denies: abdominal pain, nausea, vomiting, diarrhea, constipation Musculoskeletal: Reports: joint pain Neurological: Denies: headache, weakness, numbness, memory loss Results - Vital Signs Vital Signs: Temp Pulse Resp BP Pulse Ox 99.5 F 98 12 115/76 98 06/19/18 20:30 06/19/18 20:30 06/19/18 20:30 06/19/18 20:30 06/18/18 10:35 Assessment and Plan (1) Major depress dis, severe Current visit: Yes Status: Acute Plan: Continue hospitalization, Close observation, Suicide Precautions per unit protocol, Encourage participation in unit milieu, Group Therapy, Monitor sleep, Monitor appetite Risks, benefits, side effects, alternatives discussed w/pt: Yes Patient agreeable to treatment: Yes Consult Discharge Plan - Plan Referrals: NONE,PCP [Primary Care Provider] - Psychiatry Exam - Constitutional Vitals: Temp Pulse Resp BP Pulse Ox 99.5 F 98 12 115/76 98 06/19/18 20:30 06/19/18 20:30 06/19/18 20:30 06/19/18 20:30 06/18/18 10:35 General appearance: obese - Musculoskeletal Gait: other Station: relaxed Strength & Tone: normal for patient - Psychiatric Patient Orientation: Yes Person, Yes Time, Yes Place Level of alertness: Alert Behavior: calm, cooperative Psychomotor activity: Normal Eye Contact: Maintains Eye Contact Mood Description: Depressed Affect description: full range Speech Volume: Normal Speech pattern: normal rate, normal rhythm, normal tone, fluent, spontaneous Language & Vocabulary: consistent with education Thought Process: Linear Thought Content: Yes Suicidal ideation, No Homicidal ideation, No Overt delusions Perceptual Disturbances: No Auditory hallucinations, No Visual hallucinations Attention Span Ability: Capable of Focused Attention Memory Description: Grossly Intact Patient Reliability: Reliable Historian Fund of knowledge: Yes abstraction ability, Yes aware of current events Intelligence Estimate: Average Judgment: Limited Insight: Partial
[2018-06-20] MEDS: Acetaminophen 325 MG TABLET PO PRN ×2 (10:21→16:59)
[2018-06-20] MEDS: Mirtazapine 15 MG TABLET PO SCH (20:43)
[2018-06-20] MEDS: Gabapentin 400 MG CAPSULE PO SCH (20:44)
[2018-06-20] MEDS: Topiramate 25 MG TABLET PO SCH (20:45)
[2018-06-20] MEDS: *HR* HYDROcodone/Acet 5/325 mg TABLET PO PRN (20:47)
[2018-06-21] MEDS: Acetaminophen 325 MG TABLET PO PRN ×2 (06:41→18:54)
[2018-06-21] MEDS: Sucralfate 1 GM TABLET PO SCH ×4 (06:41→20:49)
[2018-06-21] MEDS: FLUoxetine 20 MG CAPSULE PO SCH (09:10)
[2018-06-21] MEDS: Magnesium Oxide 400 MG TABLET PO SCH (09:11)
[2018-06-21] MEDS: Topiramate 25 MG TABLET PO SCH ×2 (09:11→20:50)
[2018-06-21] MEDS: Sennosides/Docusate Sodium TABLET PO SCH (09:11)
[2018-06-21] MEDS: Loratadine 10 MG TABLET PO SCH (09:11)
[2018-06-21] MEDS: Fenofibrate 54 MG TABLET PO SCH (09:11)
[2018-06-21] MEDS: Furosemide 20 MG TABLET PO SCH (09:11)
[2018-06-21] MEDS: Celecoxib 200 MG CAPSULE PO SCH (09:11)
--- NOTE | 2018-06-21 15:07 | Psychiatry Progress Note ---
Date of Encounter: 06/21/18 Time of Encounter: 15:00 Subjective Interval history: Patient is a 32-year-old white female. Chief complaint I need to get some sleep. Last night at 2:00 in the morning was just staring at the ceiling. Known told me I had MRSA in my nose. I am here for how I am doing emotionally History of present illness. The patient has been admitted for major depressive disorder. She reports having suicidal ideation at this point but does not have a plan. The patient has a complicated medical history and he can be summarized that the patient was given surgery with partial replacement. She has hardware in the right knee. She also has a diagnosis of orthostatic hypotension she took a fall and developed patellar hematoma or patellar misalignment required more surgery. The patient has surgical wound and has either played with it or has moved it and then requested additional treatment for. The patient is on a regimen of antidepressant medicine she says that 80 mg of Prozac helps her. She has multiple allergic reactions listed in the computer. The patient has a special notification because MRSA was cultured out of her and interacts. The patient was told that she would need special wound care. As noted previously the patient has not been distressed about her mood but says that she is intermittently suicidal. When asked about going home she said that she would prefer to stay here to get her sleep taken care of and if discharged she would hate to have to come back to get her sleep medicines adjusted. The patient has an appointment on June 23. 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 the patient has had some moves and has returned from [place] Review of Systems Psychiatric: Reports: depression, abnormal sleep pattern, suicidal ideation Results - Vital Signs Vital Signs: Temp Pulse Resp BP Pulse Ox 97.9 F 92 20 113/72 98 06/21/18 09:00 06/21/18 09:00 06/21/18 09:00 06/21/18 09:00 06/18/18 10:35 Assessment and Plan (1) Major depress dis, severe Current visit: Yes Status: Acute Plan: Continue hospitalization, Close observation, Suicide Precautions per unit protocol, Encourage participation in unit milieu, Group Therapy, Monitor sleep, Monitor appetite, Secure weapons Risks, benefits, side effects, alternatives discussed w/pt: Yes Patient agreeable to treatment: Yes (2) Suicidal ideation Current visit: Yes Status: Acute Plan: Continue hospitalization, Suicide Precautions per unit protocol, Secure weapons Consult Discharge Plan - Plan Referrals: [facility] [Outside] - 06/23/18 10:00 am (The above appointment is with Christoph Pompa for outpatient psychiatric assessment and medication management services. Please arrive 10 minutes early to complete the check-in process. Please bring your insurance card (or HCAP award letter) and photo ID. If you are unable to keep this appointment, 24 hour business notice of cancellation is expected. If you miss your new patient appointment with any provider without providing appropriate notice, you cannot be re-scheduled for that service. The above appointment(s) reflects first availability. You may contact the office regularly to check for cancellations that may allow you to be seen sooner. The [facility] is the 1st building behind [facility] in [place], [place]. Please do not use GPS or mapping apps to locate the office, as they will take you to the wrong location. ) Psychiatry Exam - Constitutional Vitals: Temp Pulse Resp BP Pulse Ox 97.9 F 92 20 113/72 98 06/21/18 09:00 06/21/18 09:00 06/21/18 09:00 06/21/18 09:00 06/18/18 10:35 General appearance: age & developmentally appropriate, well-groomed, well- nourished, obese - Musculoskeletal Gait: slow Station: relaxed Strength & Tone: normal for patient - Psychiatric Patient Orientation: Yes Person, Yes Time, Yes Place Level of alertness: Alert Behavior: calm, cooperative Psychomotor activity: Normal Eye Contact: Maintains Eye Contact Mood Description: Euthymic/stable Affect description: congruent with mood, full range, incongruent with mood Speech Volume: Normal Speech pattern: normal rate, normal rhythm, normal tone, fluent, spontaneous Language & Vocabulary: consistent with education Thought Process: Linear, Goal Oriented Thought Content: Yes Suicidal ideation, No Homicidal ideation, No Overt delusions Perceptual Disturbances: No Auditory hallucinations, No Visual hallucinations Attention Span Ability: Capable of Focused Attention Memory Description: Grossly Intact Patient Reliability: Reliable Historian Fund of knowledge: Yes abstraction ability, Yes aware of current events Intelligence Estimate: Average Judgment: Fair Insight: Partial
[2018-06-21] MEDS: Gabapentin 400 MG CAPSULE PO SCH (20:49)
[2018-06-21] MEDS: Mirtazapine 15 MG TABLET PO SCH (20:49)
[2018-06-21] MEDS: *HR* HYDROcodone/Acet 5/325 mg TABLET PO PRN (20:49)
[2018-06-22] MEDS: Ondansetron ODT 4 MG TAB.RAPDIS SL PRN ×2 (06:51→20:24)
[2018-06-22] MEDS: Acetaminophen 325 MG TABLET PO PRN ×3 (06:52→21:58)
[2018-06-22] MEDS: Sucralfate 1 GM TABLET PO SCH ×4 (06:52→21:59)
[2018-06-22] MEDS: FLUoxetine 20 MG CAPSULE PO SCH (09:49)
[2018-06-22] MEDS: Topiramate 25 MG TABLET PO SCH ×2 (09:50→20:39)
[2018-06-22] MEDS: Celecoxib 200 MG CAPSULE PO SCH (09:50)
[2018-06-22] MEDS: Fenofibrate 54 MG TABLET PO SCH (09:50)
[2018-06-22] MEDS: Magnesium Oxide 400 MG TABLET PO SCH (09:51)
[2018-06-22] MEDS: Sennosides/Docusate Sodium TABLET PO SCH (09:51)
[2018-06-22] MEDS: Furosemide 20 MG TABLET PO SCH (09:51)
[2018-06-22] MEDS: Loratadine 10 MG TABLET PO SCH (09:52)
--- NOTE | 2018-06-22 11:29 | Psychiatry Progress Note ---
Date of Encounter: 06/22/18 Time of Encounter: 11:30 Subjective Interval history: ID the patient is a 32-year-old white female. Chief complaint I did not fall sleep until 2:00 in the morning. History of present illness: This patient has stated that she still has suicidal ideation related to her sleep. She was increased to a dose of 150 mg of Seroquel last night but she still requested from the nurse for more medicine to help her sleep. In spite of multiple medicines patient has not been able to sleep today she tells me that she slept from 2 AM until 6:40 AM. She woke at 640 but missed breakfast and was dozing in between according to her report. The patient does spend time in bed she has pain in the knee. She is not able to tell me when her next appointment with the orthopedic surgeon is although she believes today. We have no way to verify this at this time. The patient has an appointment tomorrow with [facility] and reports that her roommate will not be able to provide her with a ride. She was later informed the ride could be arranged for her. And the patient was willing to consider signing on is a voluntary patient. The patient notes no particular side effects the medicines and specifically no seizures seizure-like activity. Review of Systems Psychiatric: Reports: depression, abnormal sleep pattern, suicidal ideation Results - Vital Signs Vital Signs: Temp Pulse Resp BP Pulse Ox 97.8 F 75 16 113/74 98 06/22/18 09:00 06/22/18 09:00 06/22/18 09:00 06/22/18 09:00 06/18/18 10:35 Assessment and Plan (1) Major depress dis, severe Current visit: Yes Status: Acute Plan: Continue hospitalization, Close observation, Suicide Precautions per unit protocol, Encourage participation in unit milieu, Group Therapy, Monitor sleep Risks, benefits, side effects, alternatives discussed w/pt: Yes Patient agreeable to treatment: Yes (2) Suicidal ideation Current visit: Yes Status: Acute Plan: Continue hospitalization, Close observation, Suicide Precautions per unit protocol, Encourage participation in unit milieu, Secure weapons Risks, benefits, side effects, alternatives discussed w/pt: Yes Patient agreeable to treatment: Yes Consult Discharge Plan - Plan Referrals: [facility] [Outside] - 06/23/18 10:00 am (The above appointment is with Christoph Pompa for outpatient psychiatric assessment and medication management services. Please arrive 10 minutes early to complete the check-in process. Please bring your insurance card and photo ID. If you are unable to keep this appointment, 24 hour business notice of cancellation is expected. If you miss your new patient appointment without providing appropriate notice, you cannot be re-scheduled for that service. [facility] Transportation Services will pick you up for this appointment and take you home. Be ready for pick-up at 9:00am, and the driver education road instructor will arrive between 9:00am - 9:30am.) [facility] [Outside] - 07/09/18 1:30 pm (The above appointment is with Esther Morrow, counselor at [facility]. Your first appointment will be very thorough. You will be completing paperwork, meeting with a counselor and developing a treatment plan. You will receive follow- up appointments for on-going services, which could include community support, mental health and substance abuse counseling, groups/partial hospitalization programming, medication assisted treatment, and psychiatric medication management. Please bring the following with you to your first visit to the clinic: 1) proof of household income (two consecutive pay stubs, social security award letter, bank statement, statement letter from [facility] , child support statement, IRS 1040 or W2 form, or a statement from the person who financially supports you stating they help provide for your basic needs), 2 ) proof of residency (drivers license, a piece of mail showing your address, a statement from person you live with verifying you live at their address), 3) your social security number, 4) photo ID, and 5) your insurance card (if you have commercial insurance you must call to obtain a prior authorization number before you arrive to your first appointment). If you do not bring these items, it is possible that you may not be seen. ) Psychiatry Exam - Constitutional Vitals: Temp Pulse Resp BP Pulse Ox 97.8 F 75 16 113/74 98 06/22/18 09:00 06/22/18 09:00 06/22/18 09:00 06/22/18 09:00 06/18/18 10:35 General appearance: age & developmentally appropriate, well-groomed, well- nourished - Musculoskeletal Gait: normal, slow Station: relaxed Strength & Tone: normal for patient - Psychiatric Patient Orientation: Yes Person, Yes Time, Yes Place Level of alertness: Alert Behavior: calm, cooperative Psychomotor activity: Normal Eye Contact: Maintains Eye Contact Mood Description: Other Affect description: congruent with mood, full range, dysphoric Speech Volume: Normal Speech pattern: normal rate, normal rhythm, normal tone, fluent, spontaneous Language & Vocabulary: consistent with education Thought Process: Linear, Goal Oriented Thought Content: Yes Suicidal ideation, No Homicidal ideation, No Overt delusions Perceptual Disturbances: No Auditory hallucinations, No Visual hallucinations Attention Span Ability: Capable of Focused Attention Memory Description: Grossly Intact Patient Reliability: Questionable Historian Fund of knowledge: Yes abstraction ability, Yes aware of current events Intelligence Estimate: Average Judgment: Fair Insight: Partial
--- NOTE | 2018-06-22 17:42 | Event Note ---
Date of Encounter: 06/22/18 Time of Encounter: 16:45 Orthopedics S: Patient was schedule with me in the office for a wound check today but unable to make appt due to being admitted to for depression and suicidal thoughts. She denies any new concerns related to the knee. No new pain, no numbness. Denies any new injuries. States there has been some drainage to the dressings which have been changed every day after shower. States her pain is worst at night and she is unable to sleep. She does tell me that her pain is so bad it makes her want to kill herself. She states she has been wearing her brace but nurse tells me she is often taking it off. O: Incision is clean, dry and intact except for minimal gaping at proximal end where zipline dressings is coming loose. No active drainage. Mild erythema/ ecchymosis. Knee ROM restricted. A: s/p Right knee arthroscopy, partial lateral menisectomy, open extensor mechanism realignment repair 06/04/18 P: POW#2.5 - Patient doing well overall. Incision healing appropriately. I did discuss case with Momo Chadwick PA-C who has been managing patient in office. With patient's permission I did take a photo of the incision and Momo Chadwick states this appears much better than last week. There is no active drainage. Zipline mostly still intact. Left in place. New tegaderm with pad dressing applied and can be left in place until follow up appt next week in the office. May change dressings if there drainage saturating the dressing. Continue with ABD pad and LIZETH wrap to protect incision from where brace rubs. Continue in brace locked in extension with no knee flexion. Continue with current pain plan [place] BID. Discussed with nurse to try to save second dose of norco for closer to bedtime since this is when she states her pain is the worse. Can supplement with ibuprofen for breakthrough pain in between doses. Ice as needed. WBAT. Will follow up in [facility] office on 06/30/18 at 11:45am. Please call the office for any future concerns.
[2018-06-22] MEDS: Gabapentin 400 MG CAPSULE PO SCH (20:35)
[2018-06-22] MEDS: Mirtazapine 15 MG TABLET PO SCH (20:38)
[2018-06-22] MEDS: *HR* HYDROcodone/Acet 5/325 mg TABLET PO PRN (20:39)
[2018-06-23] MEDS: Sucralfate 1 GM TABLET PO SCH ×2 (06:39→11:29)
[2018-06-23] MEDS: FLUoxetine 20 MG CAPSULE PO SCH (09:00)
[2018-06-23] MEDS: Celecoxib 200 MG CAPSULE PO SCH (09:01)
[2018-06-23] MEDS: Magnesium Oxide 400 MG TABLET PO SCH (09:01)
[2018-06-23] MEDS: Loratadine 10 MG TABLET PO SCH (09:02)
[2018-06-23] MEDS: Sennosides/Docusate Sodium TABLET PO SCH (09:02)
[2018-06-23] MEDS: Topiramate 25 MG TABLET PO SCH (09:02)
[2018-06-23] MEDS: Furosemide 20 MG TABLET PO SCH (09:02)
[2018-06-23] MEDS: Fenofibrate 54 MG TABLET PO SCH (09:02)
[2018-06-23] MEDS: *HR* HYDROcodone/Acet 5/325 mg TABLET PO PRN (09:04)
[2018-06-23 09:13] VITALS: BP 140/82
[2018-06-23] MEDS: Acetaminophen 325 MG TABLET PO PRN (11:29)
--- NOTE | 2018-06-23 14:12 | Discharge Summary ---
Date of Encounter: 06/23/18 Time of Encounter: 14:00 Diagnosis - Discharge Diagnosis (1) Major depress dis, severe Priority: Primary Status: Acute (2) Suicidal ideation Priority: Secondary Status: Resolved Medications - Discharge Medications Prescriptions: Quetiapine Fumarate [Seroquel] 200 mg PO HS 30 Days #30 tablet Diclofenac Sodium [Voltaren] 50 mg PO Q8HR 5 Days tablet. 03/05/18 [Rx] Montelukast [Singulair] 10 mg PO DAILY #30 tablet 04/21/18 [Rx] Buspirone HCl [Buspar] 20 mg PO BID 06/04/18 [History] Butalbital/Aspirin/Caffeine [Fiorinal 50-325-40 mg Capsule] 1 each PO BID PRN [History] Celecoxib [Celebrex] 200 mg PO DAILY 06/04/18 [History] FLUoxetine HCl [Fluoxetine HCl] 80 mg PO DAILY 06/04/18 [History] Furosemide [Lasix] 20 mg PO DAILY 06/04/18 [History] Gabapentin [Neurontin] 1,200 mg PO HS 06/04/18 [History] Magnesium Oxide [Mag-Oxide] 400 mg PO DAILY 06/04/18 [History] Midodrine HCl 10 mg PO TID 06/04/18 [History] Mirtazapine [Remeron] 45 mg PO HS 06/04/18 [History] Nebivolol [Bystolic] 5 mg PO BID 06/04/18 [History] Omeprazole [PriLOSEC] 40 mg PO DAILY 06/04/18 [History] Potassium Chloride [Klor-Con 10] 10 meq PO DAILY 06/04/18 [History] Prazosin HCl [Minipress] 10 mg PO HS 06/04/18 [History] Promethazine [Phenergan] 25 mg PO Q8HR PRN 06/04/18 [History] Sennosides/Docusate Sodium [Docusate Sodium-Senna Tablet] 1 each PO DAILY [History] Sucralfate [Carafate] 1 gm PO QIDAC 06/04/18 [History] Amitriptyline HCl 100 mg PO HS 06/18/18 [History] Cyclobenzaprine HCl 5 mg PO TID PRN 06/18/18 [History] Fenofibrate Nanocrystallized [Tricor] 48 mg PO DAILY 06/18/18 [History] HYDROcodone/Acet 5/325 mg [[place] 5-325 mg] 1 tab PO Q12H PRN 06/18/18 [History] Ondansetron [Zofran ODT] 8 mg SL BID PRN 06/18/18 [History] Topiramate [Topamax] 50 mg PO BID 06/18/18 [History] Prazosin [Minipress] 10 mg PO HS capsule 06/23/18 [Rx] Quetiapine Fumarate [Seroquel] 200 mg PO HS 30 Days #30 tablet 06/23/18 [Rx] Topiramate [Topamax] 50 mg PO BID tablet 06/23/18 [Rx] 3 Allergy/AdvReac Type Severity Reaction Status Date / Time Bee Pollen Allergy Anaphylaxis Verified 06/03/18 10:02 benztropine [From Cogentin] Allergy Rash Verified 06/18/18 08:15 carbamazepine [From Tegretol] Allergy Rash Verified 06/18/18 08:15 ciprofloxacin [From Cipro] Allergy Rash Verified 06/18/18 08:15 duloxetine [From Cymbalta] Allergy Rash Verified 06/18/18 08:15 fluconazole [From Diflucan] Allergy Rash Verified 06/18/18 08:15 Fludrocortisone Allergy Hives Verified 06/18/18 08:15 [From Florinef] latex Allergy Rash - Verified 06/18/18 08:15 tested 06/03/18 levofloxacin [From Levaquin] Allergy Rash Verified 06/18/18 08:15 lurasidone [From Latuda] Allergy Hives Verified 06/18/18 08:15 Penicillins Allergy Rash Verified 06/18/18 08:15 quetiapine [From Seroquel] Allergy Seizure Verified 06/18/18 08:15 Temazepam [From Restoril] Allergy Rash Verified 06/18/18 08:15 ziprasidone [From Geodon] Allergy Hives Verified 06/18/18 08:15 ibuprofen [From Advil] AdvReac Vomiting Verified 06/18/18 08:15 methocarbamol [From Robaxin] AdvReac Vomiting Verified 06/18/18 08:15 naproxen [From Aleve] AdvReac Vomiting Verified 06/18/18 08:15 Provider Date of admission: 06/18/18 14:20 Primary care physician: PCP NONE Discharging clinician: Kevyn Moreno Psychiatry Exam - Constitutional Vitals: Temp Pulse Resp BP Pulse Ox 97.9 F 87 18 140/82 98 06/23/18 09:00 06/23/18 09:00 06/23/18 09:00 06/23/18 09:00 06/18/18 10:35 General appearance: age & developmentally appropriate, well-groomed, well- nourished - Musculoskeletal Gait: normal Station: relaxed Strength & Tone: normal for patient - Psychiatric Patient Orientation: Yes Person, Yes Time, Yes Place Level of alertness: Alert Behavior: calm, cooperative Psychomotor activity: Slowed Eye Contact: Maintains Eye Contact Mood Description: Euthymic/stable Affect description: congruent with mood, full range Speech Volume: Normal Speech pattern: normal rate, normal rhythm, normal tone, fluent, spontaneous Language & Vocabulary: consistent with education Thought Process: Linear, Goal Oriented Thought Content: No Suicidal ideation, No Homicidal ideation, No Overt delusions Perceptual Disturbances: No Auditory hallucinations, No Visual hallucinations Attention Span Ability: Capable of Focused Attention Memory Description: Grossly Intact Patient Reliability: Reliable Historian Fund of knowledge: Yes abstraction ability, Yes aware of current events Intelligence Estimate: Average Judgment: Fair Insight: Partial Hospital Course Hospital course: Ms. Rodriguez is a 32 year old female The chief complaint was I am sleeping better. . This patient has been on the unit she is reported ongoing issues with depression but she did not report or did not know evidence evidence of suicidal ideation or intent or plan at the time of discharge. During the time on in the last week of hospitalization the patient requested increase medicines for sleep area she was observed throughout the night was able to sleep on Seroquel 200 mg daily at bedtime. This patient has continued to have concerns about her goals paper. She has had no recent counseling. She is now trying to reestablish her treatment. The patient was also seen by the office of Dr. Alejandro for the knee replacement and recent surgical incision. The wound site was prepped and examined and felt to be good with a follow-up in one week. This patient has previous psychiatric treatment she came in on a complex regimen of medicines including antidepressants and antianxiety agents. She has been on pain medicines. 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 She identified that she may have had multiple personalities and that others cannot detect when she switches into another personality and that she will not have one personality come out as it may be in a socially awkward setting. 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 The patient identified a foreshortened sense of future. 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 She did not have seizures. Observed with the slight increase. Snoring was increased and observed overnight. The patient reported difficulty falling to sleep but it is notable that she has some sleep delay and will sleep into the morning. The patient was able to have some arrangements and resources to return home and to follow-up in the mental health area patient was advised that she had received maximal hospital benefits and that transition to an outpatient setting be most beneficial for her area - Time Spent with Patient Total time spent providing and/or coordinating discharge services: Assessment and Plan - Patient/Caregiver Discharge Instructions Activity: resume usual activities as tolerated Diet: regular diet - Follow up Plan Follow up with: [facility] [Outside] - 06/29/18 3:00 pm (The above appointment is with Christoph Pompa for outpatient psychiatric assessment and medication management services. Please arrive 10 minutes early to complete the check-in process. Please bring your insurance card and photo ID. If you are unable to keep this appointment, 24 hour business notice of cancellation is expected. If you miss your new patient appointment without providing appropriate notice, you cannot be re-scheduled for that service. [facility] will pick you up for this appointment and take you home. Be ready for pick-up at 2:35pm.) [facility] [Outside] - 07/09/18 1:30 pm (The above appointment is with Esther Morrow, counselor at [facility]. Your first appointment will be very thorough. You will be completing paperwork, meeting with a counselor and developing a treatment plan. You will receive follow- up appointments for on-going services, which could include community support, mental health and substance abuse counseling, groups/partial hospitalization programming, medication assisted treatment, and psychiatric medication management. Please bring the following with you to your first visit to the clinic: 1) proof of household income (two consecutive pay stubs, social security award letter, bank statement, statement letter from [facility] , child support statement, IRS 1040 or W2 form, or a statement from the person who financially supports you stating they help provide for your basic needs), 2 ) proof of residency (drivers license, a piece of mail showing your address, a statement from person you live with verifying you live at their address), 3) your social security number, 4) photo ID, and 5) your insurance card (if you have commercial insurance you must call to obtain a prior authorization number before you arrive to your first appointment). If you do not bring these items, it is possible that you may not be seen. ) Palma Chadwick PAC [Physician [employer]] - 06/30/18 11:45 am Madhu Bradley DO [Partnered Physician] - 08/12/18 8:00 am Steve Pompa CNP [Partnered Physician] - 06/29/18 3:00 pm Functional capacity at discharge: independent ambulation Overall status at discharge: patient is back to baseline Disposition: Home, Self-Care Quality - Multiple Antipsychotics Patient discharged on 2 or more antipsychotic medications: No Procedures - Procedures Procedures: Medication Management, Crisis Stabilization, Supportive Therapy, Group Therapy, Psychoeducational Therapy
== END 2018-06-23 15:10 | disposition home or self-care (01) | DRG 885 ==
LOC: EMEROOARM 19:41 → 1ANU 06-18 14:20 → SUATTDRO 06-18 14:20 → 1ANU 06-18 14:59
PROVIDERS: ADMIT Psychiatry & Neurology Psychiatry; ATTEND Psychiatry & Neurology Forensic Psychiatry